=== PATIENT | female | born 1995 | race Caucasian/White ===

== ENCOUNTER 2017-07-30 19:49 | Emergency (ER) | payer OTHER ==
[~2017-07-30] VITALS: Ht 172.7 cm; Wt 97.3 kg
[2017-07-30] MEDS ORDERED: PROP60TA14 PO (20:04)
[2017-07-30] MEDS ORDERED: LISI10TA4 (20:04)
[2017-07-30] MEDS ORDERED: LEVONOR (20:04)
[2017-07-30] MEDS ORDERED: ONDANSETRON 4MG/2ML VIAL (J2405) IV ONE (21:45)
[2017-07-30] MEDS ORDERED: NS 1,000 ML IV ONE (21:45)
[2017-07-30] MEDS ORDERED: MORPHINE 4 MG/ML 1ML SYRINGE IV PRN (21:45)
[2017-07-30 22:38] LABS: BASO # 0.1 10^3/uL (0.0-0.2); BASO % 0.7 % (0.0-1.0); EOS # 0.3 10^3/uL (0.0-0.50); EOS % 2.4 % (0.0-3.0); IMMATURE GRANULOCYTE % 0.4 % (0-0); LYMPH # 2.6 10^3/uL (1.5-6.5); LYMPH % 21.5 % (24.0-44.0); MEAN CORPUSCULAR HEMOGLOBIN 28.2 pg (27.0-33.0); MEAN CORPUSCULAR HGB CONC 33.1 g/dl (32.0-36.5); MEAN CORPUSCULAR VOLUME 85.2 fl (80.0-96.0); MONO # 0.8 10^3/uL (0.0-0.8); MONO % 6.7 % (0.0-5.0); NEUTROPHILS # 8.4 10^3/uL (1.8-7.7); NEUTROPHILS % 68.3 % (36.0-66.0); PLATELET COUNT, AUTOMATED 314 10^3/uL (150-450); RED CELL DISTRIBUTION WIDTH 13.9 % (11.5-14.5); WHITE BLOOD COUNT 12.3 10^3/uL (4.0-10.0)
--- NOTE | 2017-07-30 22:40 | REPUSA ---
HISTORY: RUQ PAIN. TECHNIQUE: Right upper quadrant limited ultrasound examination . FINDINGS: Liver is of normal size with increased echogenic texture consistent with fatty liver, wit hout focal liver mass seen. No ascites is seen. Biliary tree and gallbladder are normal with no gallstones seen. Gallbladder wall thickness is galina l and common bile duct measures 5.3 mm. Limited imaging of the pancreas demonstrates no pathologic mass. Right kidney measures 12.0 x 5.8 x 4.8 cm with no pathologic mass, hydronephrosis, or calculi seen. IMPRESSION: 1. Hepatic steatosis. 2. Otherwise, negative right upper quadrant limited ultrasound examination.
[2017-07-30 23:07] LABS: ALBUMIN 3.6 GM/DL (3.2-5.2); ALBUMIN/GLOBULIN RATIO 0.92 (1.00-1.93); ALKALINE PHOSPHATASE 104 U/L (45-117); ALT/SGPT 38 U/L (12-78); ANION GAP 7 MEQ/L (8-16); AST/SGOT 20 U/L (15-37); BILIRUBIN,DIRECT < 0.1 MG/DL (0.0-0.2); BILIRUBIN,TOTAL 0.3 MG/DL (0.2-1.0); BLOOD UREA NITROGEN 6 MG/DL (7-18); CARBON DIOXIDE LEVEL 26 MEQ/L (21-32); CHLORIDE LEVEL 105 MEQ/L (98-107); CREATININE FOR GFR 0.62 MG/DL (0.55-1.02); GLUCOSE, FASTING 85 MG/DL (70-105); POTASSIUM SERUM 4.2 MEQ/L (3.5-5.1); SODIUM LEVEL 138 MEQ/L (136-145); TOTAL PROTEIN 7.5 GM/DL (6.4-8.2)
[2017-07-30] MEDS ORDERED: ISOVUE-370 76% 100ML VIAL (Q9967) As Ordered ONE (23:15)
--- NOTE | 2017-07-31 | REPUSA ---
HISTORY: RUQ PAIN.. TECHNIQUE: Axial CT imaging of abdomen and pelvis with intravenous contrast enhancement and sagittal and coronal reformatted imaging. DLP= 770.1 mGy-cm. FINDINGS: Lung bases are clear. No bony fracture or destructive bony lesion is seen in the lower thor ax, abdomen, and pelvis. Liver is enlarged with fatty infiltration. No focal liver mass is seen. Biliary tree is of normal c aliber. No calcified gallstones are seen in the gallbladder and no gallbladder wall wall mass is see n, but there is a small amount of pericholecystic fluid measuring approximately 5 mm, which was not d emonstrated on the recent gallbladder ultrasound examination performed earlier tonight.. This may re present acalculus cholecystitis and clinical correlation and follow-up is suggested as indicated. Co nsider a hepatobiliary nuclear medicine scan with gallbladder ejection fraction. The pancreas pancreas, and spleen are normal. Adrenal glands are normal. Right and left kidneys are normal with no evidence of mass lesion, obstruc tion, or nephrolithiasis seen. Ureters and urinary bladder are normal. There is no evidence of abdomi nal aortic aneurysm. No retroperitoneal mass lesion or hemorrhage is seen. No pelvic mass lesion or abnormal fluid collections are seen in the abdomen and pelvis. There is no e vidence of bowel wall mass lesion, obstruction, perforation, inflammatory reaction, or evidence of di verticulitis. No abdominal wall hernia is seen. IMPRESSION: 1. Borderline hepatomegaly and hepatic steatosis, without focal liver mass lesions seen. Follow-up with liver function tests if indicated. 2. No calcified gallstones or gallbladder wall mass is seen, but there is a small amount of perichol ecystic fluid raising question of acalculus cholecystitis. Clinical correlation and consideration of a hepatobiliary nuclear medicine scan with gallbladder ejection fraction is suggested if indicated. 3. The remainder of the CT examination of the abdomen and pelvis is normal.
[2017-07-31 00:26] VITALS: BP 158/88
== END 2017-07-31 00:29 | disposition home or self-care (01) ==
LOC: M ED 19:49
DX: K80.50 Calculus of bile duct without cholangitis or cholecystitis without obstruction (principal); Z79.899 Other long term (current) drug therapy
CPT/HCPCS: 74177; 76705; 80048; 80076; 81001; 81025; 83690; 85025; 96374; 96375; 99284; J2405; Q9967

== ENCOUNTER 2017-09-24 13:15 | Day surgery (SDC) | payer OTHER ==
[~2017-09-24] VITALS: Ht 172.7 cm; Wt 96.2 kg
[~2017-09-24 13:15] MED LIST: IRON65TA PO; LEVONOR; LEVOTAB14 PO; LISI10TA4; OMEP40CA2 PO; PROP60TA14 PO
[2017-09-24] MEDS ORDERED: NS 1,000 ML IV ONE (14:00)
[2017-09-24] MEDS ORDERED: PROPOFOL 200 MG/20 ML VIAL As Ordered ONE (14:53)
[2017-09-24] MEDS ORDERED: LIDOCAINE 2% INJ 100 MG/5 ML SDV (FOR ANES.) As Ordered ONE (14:53)
--- NOTE | 2017-09-24 15:14 | ROOR ---
Patient Name: Lilia Nava Procedure Date: 09/24/2017 3:05 PM Date of : 1995 Age: 22 Room: [facility] Gender: Female Note Status: Finalized Procedure: Upper GI endoscopy Indications: Epigastric abdominal pain Providers: Luke MARROQUIN MD Referring MD: Bryon Goodwin NP Requesting Provider: Medicines: Monitored Anesthesia Care Complications: No immediate complications. Procedure: Pre-Anesthesia Assessment: - The heart rate, respiratory rate, oxygen saturations, blood pressure, adequacy of pulmonary ventilation, and response to care were monitored throughout the procedure. The Endoscope was introduced through the mouth, and advanced to the second part of duodenum. The upper GI endoscopy was accomplished without difficulty. The patient tolerated the procedure well. Findings: The esophagus was normal. The stomach was normal. The examined duodenum was normal. Impression: - Normal esophagus. - Normal stomach. - Normal examined duodenum. - No specimens collected. Recommendation: - Use Prilosec (omeprazole) 20 mg PO daily for 3 months. - May attempt change to ranitidine in 2-3 months. - (the script was sent to your pharmacy on file) Luke Marroquin MD Luke MARROQUIN MD 09/24/2017 3:14:19 PM This report has been signed electronically. Number of Addenda: 0 Note Initiated On: 09/24/2017 3:05 PM Estimated Blood Loss: Estimated blood loss: none.
[2017-09-24 15:50] VITALS: BP 132/67
== END 2017-09-24 16:10 | disposition home or self-care (01) ==
LOC: M OPP 13:15
PROVIDERS: ATTEND Internal Medicine Gastroenterology
DX: R10.13 Epigastric pain (principal); I10 Essential (primary) hypertension; K21.9 Gastro-esophageal reflux disease without esophagitis; H54.8 Legal blindness, as defined in USA; D64.9 Anemia, unspecified; Z79.899 Other long term (current) drug therapy; Z80.3 Family history of malignant neoplasm of breast; Z80.8 Family history of malignant neoplasm of other organs or systems; Z80.0 Family history of malignant neoplasm of digestive organs

== ENCOUNTER → 2017-11-01 | Outpatient (CLI) | payer OTHER ==
[2017-11-01 19:32] LABS: BASO # 0.1 10^3/uL (0.0-0.2); BASO % 0.8 % (0.0-1.0); EOS # 0.4 10^3/uL (0.0-0.50); EOS % 4.4 % (0.0-3.0); HEMATOCRIT 43.4 % (36.0-47.0); HEMOGLOBIN 14.5 g/dl (12.0-16.0); IMMATURE GRANULOCYTE # 0.1 10^3/uL (0-0); IMMATURE GRANULOCYTE % 0.6 % (0-0); LYMPH # 2.3 10^3/uL (1.5-6.5); MEAN CORPUSCULAR HEMOGLOBIN 28.7 pg (27.0-33.0); MEAN CORPUSCULAR HGB CONC 33.4 g/dl (32.0-36.5); MEAN CORPUSCULAR VOLUME 85.8 fl (80.0-96.0); MONO # 0.7 10^3/uL (0.0-0.8); MONO % 8.2 % (0.0-5.0); NEUTROPHILS # 5.1 10^3/uL (1.8-7.7); PLATELET COUNT, AUTOMATED 366 10^3/uL (150-450); RED BLOOD COUNT 5.06 10^6/uL (4.00-5.40); RED CELL DISTRIBUTION WIDTH 13.1 % (11.5-14.5); WHITE BLOOD COUNT 8.6 10^3/uL (4.0-10.0)
[2017-11-01 20:08] LABS: ALBUMIN 3.9 GM/DL (3.2-5.2); ALBUMIN/GLOBULIN RATIO 1.11 (1.00-1.93); ALKALINE PHOSPHATASE 116 U/L (45-117); ALT/SGPT 34 U/L (12-78); ANION GAP 7 MEQ/L (8-16); AST/SGOT 15 U/L (7-37); BILIRUBIN,TOTAL 0.2 MG/DL (0.2-1.0); BLOOD UREA NITROGEN 8 MG/DL (7-18); CARBON DIOXIDE LEVEL 28 MEQ/L (21-32); CHLORIDE LEVEL 107 MEQ/L (98-107); CREATININE FOR GFR 0.47 MG/DL (0.55-1.02); GLUCOSE, FASTING 93 MG/DL (70-100); IRON (FE) 57 UG/DL (50-170); POTASSIUM SERUM 4.6 MEQ/L (3.5-5.1); SODIUM LEVEL 142 MEQ/L (136-145); TOTAL PROTEIN 7.4 GM/DL (6.4-8.2)
== END ==
LOC: M LAB 17:08
DX: E61.1 Iron deficiency (principal)
CPT/HCPCS: 83540

== ENCOUNTER 2018-05-08 22:13 | Emergency (ER) | payer OTHER ==
[2018-05-08] MEDS: IBUPROFEN 800 MG TAB PO (23:29)
== END 2018-05-08 23:35 | disposition home or self-care (01) ==
LOC: M ED 22:13
DX: I10 Essential (primary) hypertension (principal); M25.521 Pain in right elbow; G43.909 Migraine, unspecified, not intractable, without status migrainosus; Z79.899 Other long term (current) drug therapy
CPT/HCPCS: 73080

== ENCOUNTER → 2018-05-09 | Outpatient (CLI) | payer OTHER ==
[2018-05-09 16:04] LABS: BASO # 0.1 10^3/uL (0.0-0.2); BASO % 0.7 % (0.0-1.0); EOS # 0.3 10^3/uL (0.0-0.50); HEMATOCRIT 42.1 % (36.0-47.0); HEMOGLOBIN 14.1 g/dl (12.0-15.5); IMMATURE GRANULOCYTE % 0.4 % (0-3.0); LYMPH # 2.3 10^3/uL (1.5-6.5); LYMPH % 23.8 % (24.0-44.0); MEAN CORPUSCULAR HEMOGLOBIN 29.2 pg (27.0-33.0); MEAN CORPUSCULAR HGB CONC 33.5 g/dl (32.0-36.5); MEAN CORPUSCULAR VOLUME 87.2 fl (80.0-96.0); MONO # 0.7 10^3/uL (0.0-0.8); MONO % 7.3 % (0.0-5.0); NEUTROPHILS # 6.3 10^3/uL (1.8-7.7); NEUTROPHILS % 64.8 % (36.0-66.0); PLATELET COUNT, AUTOMATED 307 10^3/uL (150-450); RED BLOOD COUNT 4.83 10^6/uL (4.00-5.40); RED CELL DISTRIBUTION WIDTH 13.2 % (11.5-14.5); WHITE BLOOD COUNT 9.8 10^3/uL (4.0-10.0)
[2018-05-09 16:51] LABS: ANION GAP 8 MEQ/L (8-16); BLOOD UREA NITROGEN 8 MG/DL (7-18); CARBON DIOXIDE LEVEL 28 MEQ/L (21-32); CHLORIDE LEVEL 106 MEQ/L (98-107); GLUCOSE, FASTING 79 MG/DL (70-100); IRON (FE) 74 UG/DL (50-170); POTASSIUM SERUM 4.7 MEQ/L (3.5-5.1); SODIUM LEVEL 142 MEQ/L (136-145)
== END ==
LOC: M LAB 15:05
DX: I10 Essential (primary) hypertension (principal); E61.1 Iron deficiency
CPT/HCPCS: 83540

== ENCOUNTER → 2018-09-21 | Outpatient (REF) | payer OTHER | LOC: M LAB REF 19:07 | DX: R87.615 Unsatisfactory cytologic smear of cervix (principal) | CPT/HCPCS: 88142 ==

== ENCOUNTER → 2018-11-17 | Outpatient (CLI) | payer BC, OTHER ==
[2018-11-17 15:12] LABS: BASO # 0.1 10^3/uL (0.0-0.2); BASO % 0.6 % (0.0-1.0); EOS # 0.3 10^3/uL (0.0-0.50); EOS % 3.4 % (0.0-3.0); HEMATOCRIT 42.4 % (36.0-47.0); HEMOGLOBIN 14.1 g/dl (12.0-15.5); LYMPH # 2.2 10^3/uL (1.5-6.5); LYMPH % 26.8 % (24.0-44.0); MEAN CORPUSCULAR HGB CONC 33.3 g/dl (32.0-36.5); MEAN CORPUSCULAR VOLUME 87.1 fl (80.0-96.0); MONO # 0.5 10^3/uL (0.0-0.8); MONO % 6.6 % (0.0-5.0); NEUTROPHILS % 62.1 % (36.0-66.0); PLATELET COUNT, AUTOMATED 330 10^3/uL (150-450); RED BLOOD COUNT 4.87 10^6/uL (4.00-5.40)
[2018-11-17 15:32] LABS: ALBUMIN 3.9 GM/DL (3.2-5.2); ALT/SGPT 40 U/L (12-78); BILIRUBIN,TOTAL 0.4 MG/DL (0.2-1.0); BLOOD UREA NITROGEN 8 MG/DL (7-18); CALCIUM LEVEL 9.2 MG/DL (8.5-10.1); CARBON DIOXIDE LEVEL 26 MEQ/L (21-32); CHLORIDE LEVEL 105 MEQ/L (98-107); FREE T3 2.8 PG/ML (2.2-4.0); FREE T4 0.97 NG/DL (0.76-1.46); GLOMERULAR FILTRATION RATE > 60.0 (>60); GLUCOSE, FASTING 95 MG/DL (70-100); IRON (FE) 129 UG/DL (50-170); POTASSIUM SERUM 4.5 MEQ/L (3.5-5.1); SODIUM LEVEL 138 MEQ/L (136-145); TOTAL PROTEIN 7.2 GM/DL (6.4-8.2)
== END ==
LOC: M LAB 14:30
PROVIDERS: ATTEND Nurse Practitioner Family
DX: R00.2 Palpitations (principal); E61.1 Iron deficiency; I10 Essential (primary) hypertension

== ENCOUNTER 2019-07-31 20:52 | Emergency (ER) | payer BC, MEDICAID ==
[~2019-07-31] VITALS: Ht 172.7 cm; Wt 108.2 kg
[~2019-07-31 20:52] MED LIST changes: -OMEP40CA2 PO; +OMEP40CA97 PO
[2019-07-31] MEDS ORDERED: TRAZ-252 (21:13)
[2019-07-31] MEDS ORDERED: CELE20TA (21:13)
--- NOTE | 2019-07-31 22:30 | REPVR ---
PROCEDURE INFORMATION: Exam: CT Head Without Contrast Exam date and time: 07/31/2019 9:31 PM Clinical history: 24 years old, female; Injury or trauma; Fall; Initial encounter; Concussion / head injury; Consciousness not specified; Additional info: Fall down 10 steps TECHNIQUE: Imaging protocol: Computed tomography of the head without contrast. Radiation optimization: All CT scans at this facility use at least one of these dose optimization techniques: automated exposure control; mA and/or kV adjustment per patient size (includes targeted exams where dose is matched to clinical indication); or iterative reconstruction. COMPARISON: No relevant prior studies available. FINDINGS: Brain: Normal. No hemorrhage. Unremarkable white matter. No mass effect. Ventricles: Normal. No ventriculomegaly. Bones/joints: Unremarkable. No acute fracture. Sinuses: Visualized sinuses are unremarkable. No fluid levels. Mastoid air cells: Visualized mastoid air cells are well aerated. Soft tissues: Unremarkable. IMPRESSION: No acute intracranial abnormality. Electronically signed by: Luke Davies On 07/31/2019 22:29:58 PM
--- NOTE | 2019-07-31 22:32 | REPVR ---
PROCEDURE INFORMATION: Exam: CT Cervical Spine Without Contrast Exam date and time: 07/31/2019 9:31 PM Clinical history: 24 years old, female; Injury or trauma; Fall; Initial encounter; Blunt trauma; Additional info: Fall down 10 steps TECHNIQUE: Imaging protocol: Computed tomography images of the cervical spine without contrast. Radiation optimization: All CT scans at this facility use at least one of these dose optimization techniques: automated exposure control; mA and/or kV adjustment per patient size (includes targeted exams where dose is matched to clinical indication); or iterative reconstruction. COMPARISON: No relevant prior studies available. FINDINGS: Vertebrae: Straightening of the normal cervical lordotic curvature. Normal vertebral body heights and alignments. No fractures. Discs/Spinal canal/Neural foramina: No spinal stenosis. No neural foraminal narrowing. Soft tissues: Unremarkable. Lungs: Lung apices are normal. IMPRESSION: No acute fracture/subluxation. Electronically signed by: Luke Davies On 07/31/2019 22:31:42 PM
[2019-08-01] MEDS ORDERED: ACETAMINOPHEN 500 MG TAB PO ONE (01:00)
[2019-08-01 04:12] VITALS: BP 149/90
--- NOTE | 2019-08-01 04:18 | REP ---
Clinical: Trauma. Fall. Technique: AP, lateral, bilateral oblique, and coned-down views. Findings: Alignment and lordosis is maintained. The vertebral bodies including transverse process and spinous processes are intact and normal. There is no evidence for acute fracture / compression injury or subluxation. No evidence for spondylolysis or spondylolisthesis. No significant degenerative change is noted. Impression: Normal lumbosacral spine radiograph series. Electronically Signed by Jasiel Yeung MD 08/01/2019 04:10 A
== END 2019-08-01 04:14 | disposition home or self-care (01) ==
LOC: M ED 20:52
DX: S00.03XA Contusion of scalp, initial encounter (principal); S39.012A Strain of muscle, fascia and tendon of lower back, initial encounter; W10.8XXA Fall (on) (from) other stairs and steps, initial encounter; Y92.89 Other specified places as the place of occurrence of the external cause; Y93.89 Activity, other specified; Y99.8 Other external cause status; I10 Essential (primary) hypertension; Z87.828 Personal history of other (healed) physical injury and trauma

== ENCOUNTER → 2019-12-04 | Outpatient (REF) | payer BC, MEDICAID ==
[~2019-12-04] MED LIST changes: +CELE20TA; +TRAZ-252
[2019-12-04 12:19] LABS: HEMOGLOBIN 13.8 g/dl (12.0-15.5); MEAN CORPUSCULAR HEMOGLOBIN 28.2 pg (27.0-33.0); MEAN CORPUSCULAR HGB CONC 32.9 g/dl (32.0-36.5); MEAN CORPUSCULAR VOLUME 85.7 fl (80.0-96.0); PLATELET COUNT, AUTOMATED 321 10^3/uL (150-450); WHITE BLOOD COUNT 8.3 10^3/uL (4.0-10.0)
[2019-12-04 12:36] LABS: ALBUMIN 3.8 GM/DL (3.2-5.2); ALT/SGPT 70 U/L (12-78); BILIRUBIN,TOTAL 0.2 MG/DL (0.2-1.0); BLOOD UREA NITROGEN 10 MG/DL (7-18); CALCIUM LEVEL 9.6 MG/DL (8.5-10.1); CARBON DIOXIDE LEVEL 28 MEQ/L (21-32); CHLORIDE LEVEL 108 MEQ/L (98-107); CHOLESTEROL LEVEL 157 MG/DL (<200); CHOLESTEROL RISK RATIO 3.019 (<5); CREATININE FOR GFR 0.61 MG/DL (0.55-1.30); FREE T4 1.05 NG/DL (0.76-1.46); GLOMERULAR FILTRATION RATE > 60.0 (>60); GLUCOSE, FASTING 121 MG/DL (70-100); HDL CHOLESTEROL 52 MG/DL (>40); LDL CHOLESTEROL 58 MG/DL (<100); NON-HDL-C 105 MG/DL; POTASSIUM SERUM 4.7 MEQ/L (3.5-5.1); SODIUM LEVEL 141 MEQ/L (136-145); TOTAL 25(OH) VITAMIN D 18.3 NG/ML (30.0-100.0); TRIGLYCERIDES LEVEL 237 MG/DL (<150)
[2019-12-04 12:44] LABS: HEMOGLOBIN A1c 6.2 %
== END ==
LOC: M SFHCPLAZ 09:05
PROVIDERS: ATTEND Physician Assistant
DX: Z00.00 Encounter for general adult medical examination without abnormal findings (principal); Z86.2 Personal history of diseases of the blood and blood-forming organs and certain disorders involving the immune mechanism; Z13.29 Encounter for screening for other suspected endocrine disorder; Z13.220 Encounter for screening for lipoid disorders; Z13.1 Encounter for screening for diabetes mellitus; I11.9 Hypertensive heart disease without heart failure

== ENCOUNTER → 2020-10-20 | Outpatient (CLI) | payer SELFPAY | LOC: M LABSMTC 08:30 | PROVIDERS: ATTEND Pediatrics | DX: Z20.822 Contact with and (suspected) exposure to COVID-19 (principal) ==

== ENCOUNTER → 2020-12-20 | Outpatient (REF) | payer BC, MEDICAID ==
[~2020-12-20] MED LIST changes: +LISI10TA22; -LISI10TA4
[2020-12-20 16:05] LABS: HEMOGLOBIN A1c 7.3 %
[2020-12-20 16:24] LABS: ALBUMIN 3.9 GM/DL (3.2-5.2); ALT/SGPT 188 U/L (12-78); BILIRUBIN,TOTAL 0.4 MG/DL (0.2-1.0); BLOOD UREA NITROGEN 8 MG/DL (7-18); CALCIUM LEVEL 9.3 MG/DL (8.5-10.1); CARBON DIOXIDE LEVEL 25 MEQ/L (21-32); CHLORIDE LEVEL 104 MEQ/L (98-107); CREATININE FOR GFR 0.76 MG/DL (0.55-1.30); FREE T4 1.05 NG/DL (0.76-1.46); GLOMERULAR FILTRATION RATE > 60.0 (>60); GLUCOSE, FASTING 164 MG/DL (70-100); SODIUM LEVEL 136 MEQ/L (136-145); TOTAL PROTEIN 7.6 GM/DL (6.4-8.2)
[2020-12-20 16:34] LABS: TOTAL 25(OH) VITAMIN D 15.2 NG/ML (30.0-100.0)
== END ==
LOC: M SFHCPLAZ 12:24
PROVIDERS: ATTEND Physician Assistant
DX: I11.9 Hypertensive heart disease without heart failure (principal); R79.89 Other specified abnormal findings of blood chemistry; R73.01 Impaired fasting glucose; E55.9 Vitamin D deficiency, unspecified

== ENCOUNTER → 2021-01-16 | Outpatient (REF) | payer BC, MEDICAID ==
[2021-01-16 14:35] LABS: ALBUMIN 3.7 GM/DL (3.2-5.2); ALT/SGPT 193 U/L (12-78); BILIRUBIN,TOTAL 0.4 MG/DL (0.2-1.0); BLOOD UREA NITROGEN 9 MG/DL (7-18); CALCIUM LEVEL 9.8 MG/DL (8.5-10.1); CARBON DIOXIDE LEVEL 25 MEQ/L (21-32); CHLORIDE LEVEL 101 MEQ/L (98-107); CREATININE FOR GFR 0.65 MG/DL (0.55-1.30); GLOMERULAR FILTRATION RATE > 60.0 (>60); GLUCOSE, FASTING 263 MG/DL (70-100); POTASSIUM SERUM 4.8 MEQ/L (3.5-5.1); SODIUM LEVEL 134 MEQ/L (136-145); TOTAL PROTEIN 7.2 GM/DL (6.4-8.2)
== END ==
LOC: M SFHCPLAZ 09:21
PROVIDERS: ATTEND Physician Assistant
DX: R74.8 Abnormal levels of other serum enzymes (principal)

== ENCOUNTER → 2021-02-07 | Outpatient (CLI) | payer BC, MEDICAID ==
--- NOTE | 2021-02-07 09:28 | REP ---
INDICATION: R74.8 ELEVATED LIVER ENZYMES. COMPARISON: 07/30/2017. TECHNIQUE: Real-time sonographic evaluation of right upper quadrant performed. FINDINGS: The gallbladder demonstrates no evidence of intraluminal sludge or calculi, wall thickening or pericholecystic fluid. There is no intrahepatic or extrahepatic biliary dilatation, common bile duct measures 3 mm in maximum diameter. The liver demonstrates diffuse increased echotexture compatible with diffuse fatty infiltration. A rounded hypoechoic area adjacent to the gallbladder measures 1.9 x 1.5 x 2.1 cm. This could represent an area of spared liver parenchyma. More inferiorly in the right lobe a similar appearing area measures 1.7 x 1.7 x 1.2 cm. There is a hepatomegaly, the length of the liver is approximately 21 cm. Visualized pancreas is grossly unremarkable, not optimally seen due to overlying bowel gas. The right kidney demonstrates no hydronephrosis, with a normal size of 12.3 cm in length. No free fluid is seen. IMPRESSION: Findings consistent with diffuse fatty infiltration of the liver. Hepatomegaly. Two rounded hypoechoic areas in the right lobe of the liver as discussed above, 1 adjacent to the gallbladder and 1 more inferiorly in the right lobe. These most likely represent focal areas of spared liver parenchyma. Recommend follow-up ultrasound in 6 months. <Electronically signed by Jared Solares > 02/07/21 0924
== END ==
LOC: M WHC 08:07
PROVIDERS: ATTEND Physician Assistant
DX: R74.8 Abnormal levels of other serum enzymes (principal); R16.0 Hepatomegaly, not elsewhere classified; K76.89 Other specified diseases of liver

== ENCOUNTER 2021-03-18 18:25 | Emergency (ER) | payer BC, MEDICAID ==
[~2021-03-18] VITALS: Ht 172.7 cm; Wt 104.5 kg
[2021-03-18 18:32] VITALS: BP 167/101
[2021-03-19] MEDS ORDERED: LISI10TA15 PO (02:17)
[2021-03-19] MEDS ORDERED: METF-838 PO (02:17)
[2021-03-19] MEDS ORDERED: NOXI1TAB PO (02:17)
[2021-03-19] MEDS ORDERED: KETO10TAB PO (06:36)
== END 2021-03-18 19:35 | disposition left against medical advice (07) ==
LOC: M ED 18:25
DX: Z53.21 Procedure and treatment not carried out due to patient leaving prior to being seen by health care provider (principal)

== ENCOUNTER 2021-03-18 22:20 | Emergency (ER) | payer BC, MEDICAID ==
[~2021-03-18] VITALS: Ht 172.7 cm; Wt 104.5 kg
[2021-03-19 00:10] LABS: HCG, SERUM QUALITATIVE NEGATIVE (NEGATIVE)
[2021-03-19 00:11] LABS: ALBUMIN 4.5 GM/DL (3.2-5.2); ALT/SGPT 296 U/L (12-78); BILIRUBIN,DIRECT 0.2 MG/DL (0.0-0.2); BILIRUBIN,TOTAL 0.5 MG/DL (0.2-1.0); BLOOD UREA NITROGEN 12 MG/DL (7-18); CALCIUM LEVEL 10.2 MG/DL (8.5-10.1); CARBON DIOXIDE LEVEL 31 MEQ/L (21-32); CHLORIDE LEVEL 101 MEQ/L (98-107); CREATININE FOR GFR 0.77 MG/DL (0.55-1.30); GLOMERULAR FILTRATION RATE > 60.0 (>60); GLUCOSE, FASTING 126 MG/DL (70-100); LIPASE 204 U/L (73-393); POTASSIUM SERUM 4.7 MEQ/L (3.5-5.1); SODIUM LEVEL 138 MEQ/L (136-145); TOTAL PROTEIN 8.5 GM/DL (6.4-8.2)
[2021-03-19 00:13] LABS: BASO # 0.1 10^3/uL (0.0-0.2); BASO % 0.7 % (0.0-1.0); EOS # 0.2 10^3/uL (0.0-0.5); EOS % 1.4 % (0.0-3.0); HEMATOCRIT 46.6 % (36.0-47.0); LYMPH % 22.5 % (24.0-44.0); MEAN CORPUSCULAR HEMOGLOBIN 28.1 pg (27.0-33.0); MEAN CORPUSCULAR HGB CONC 32.2 g/dl (32.0-36.5); MEAN CORPUSCULAR VOLUME 87.4 fl (80.0-96.0); MONO # 0.9 10^3/uL (0.0-0.8); MONO % 6.8 % (2.0-8.0); NEUTROPHILS # 9.2 10^3/uL (1.5-8.5); NEUTROPHILS % 67.9 % (36.0-66.0); PLATELET COUNT, AUTOMATED 403 10^3/uL (150-450); RED BLOOD COUNT 5.33 10^6/uL (4.00-5.40); WHITE BLOOD COUNT 13.5 10^3/uL (4.0-10.0)
[2021-03-19] MEDS ORDERED: METF-838 PO (02:17)
[2021-03-19] MEDS ORDERED: NOXI1TAB PO (02:17)
[2021-03-19] MEDS ORDERED: LISI10TA15 PO (02:17)
[2021-03-19] MEDS ORDERED: ISOVUE-370 76% 100ML VIAL As Ordered ONE (03:45)
--- NOTE | 2021-03-19 04:43 | REPVR ---
PROCEDURE INFORMATION: Exam: CT Abdomen And Pelvis With Contrast Exam date and time: 03/19/2021 3:15 AM Age: 25 years old Clinical indication: Abdominal pain; Localized; Right lower quadrant (rlq); Additional info: Right lower quadrant pain, R/O appendicitis TECHNIQUE: Imaging protocol: Computed tomography of the abdomen and pelvis with contrast. Radiation optimization: All CT scans at this facility use at least one of these dose optimization techniques: automated exposure control; mA and/or kV adjustment per patient size (includes targeted exams where dose is matched to clinical indication); or iterative reconstruction. Contrast material: ISO; Contrast volume: 100 ml; Contrast route: INTRAVENOUS (IV); COMPARISON: CT ABD/PEL W/IV CONTRAST ONLY 07/30/2017 11:19 PM FINDINGS: LUNG BASES: No infiltrate or effusion. VASCULAR: Visualized cardiac size is at the upper end of normal. No abdominoaortic aneurysm, dissection, or retroperitoneal hematoma. PERITONEAL : No free air or free fluid. GI: No hiatal hernia. The stomach contains some fluid and gas. The stomach is not sufficiently distended for complete diagnostic evaluation by this exam. No appearance of a bowel obstruction. No focal mesenteric inflammation seen. Slightly prominent mesenteric and ileocolic lymph nodes are noted, up to 6.3 mm in short axis. These are nonspecific but mild mesenteric adenitis or reactive nodes secondary to mild gastroenteritis may be considerations. Perianal inflammation cannot be excluded. Portions of the colon and rectum appear slightly thick-walled, however this may be artifactual secondary to insufficient distention. No pericolonic inflammation is seen. No evidence of acute diverticulitis. The appendix does not appear inflamed. HEPATOBILIARY, PANCREAS, SPLEEN: Hepatic length is 21.9 cm. Hepatic attenuation is consistent with steatosis. There is slight heterogeneity of hepatic parenchyma. No calcified gallstones or biliary dilation. No pancreatic inflammation. Spleen not enlarged. Slight heterogeneity of the spleen, likely artifactual secondary to early timing. ADRENALS, KIDNEYS, BLADDER, RETROPERITONEAL: Adrenals within normal limits. No hydronephrosis. Symmetric renal enhancement. No perinephric stranding or fluid. No perivesical stranding. No bladder wall thickening. PELVIC: Anteverted uterus. Gas within the vagina may be iatrogenic. There may be some follicular changes within the ovaries. If there are pelvic symptoms, consider ultrasound for more detailed evaluation. MUSCULOSKELETAL: Large posterior disc displacement noted at the L5/S1 level. If there are related symptoms, consider MRI for further evaluation. IMPRESSION: The appendix does not appear inflamed. No free-air, free-fluid or focal mesenteric inflammation seen. Nonspecific gastrointestinal findings to be correlated clinically are discussed above in detail. Hepatic enlargement and steatosis. Other incidental findings discussed above. Electronically signed by: Shayan Perkins On 03/19/2021 04:42:33 AM
[2021-03-19] MEDS ORDERED: KETOROLAC 30 MG/ML 1ML VIAL IV ONE (05:35)
[2021-03-19] MEDS ORDERED: KETO10TAB PO (06:36)
[2021-03-19 06:54] VITALS: BP 132/65
--- NOTE | 2021-03-19 18:34 | ED PDOC ---
Post-Departure Follow-Up елена leija faxed formal report of ct abd/p for fu Lu Robert MD Mar 19, 2021 18:34
== END 2021-03-19 06:57 | disposition home or self-care (01) ==
LOC: M ED 22:20
DX: R10.31 Right lower quadrant pain (principal); R16.0 Hepatomegaly, not elsewhere classified; K76.0 Fatty (change of) liver, not elsewhere classified; I10 Essential (primary) hypertension; D64.9 Anemia, unspecified; G47.00 Insomnia, unspecified; H54.42A3 Blindness left eye category 3, normal vision right eye; Z79.3 Long term (current) use of hormonal contraceptives; Z79.899 Other long term (current) drug therapy
CPT/HCPCS: 74177; 80048; 80076; 81001; 83690; 84703; 85025; 87210; 87490; 87590; 96374; 99283; J1885; Q9967

== ENCOUNTER → 2021-03-25 | Outpatient (REF) | payer BC, MEDICAID ==
[~2021-03-25] MED LIST changes: +KETO10TAB PO; +LISI10TA15 PO; +METF-838 PO; +NOXI1TAB PO
[2021-03-25 14:32] LABS: APPEARANCE, URINE CLEAR (CLEAR); BACTERIA, URINE AUTO NEGATIVE (NEGATIVE); BILIRUBIN, URINE AUTO NEGATIVE (NEGATIVE); BLOOD, URINE BLOOD NEGATIVE (NEGATIVE); COLOR, URINE STRAW (YELLOW); GLUCOSE, URINE (UA) AUTO NEGATIVE (NEGATIVE); KETONE, URINE AUTO NEGATIVE (NEGATIVE); LEUKOCYTE ESTERASE, URINE AUTO NEGATIVE (NEGATIVE); NITRITE, URINE AUTO NEGATIVE (NEGATIVE); PROTEIN, URINE AUTO NEGATIVE (NEGATIVE); RBC, URINE AUTO 0 /HPF (0-3); SPECIFIC GRAVITY URINE AUTO 1.013 (1.002-1.035); SQUAMOUS EPITHELIAL CELL UR AU 0 /HPF (0-6); UROBILINOGEN, URINE AUTO 0.2 mg/dL (0.0-2.0); WBC, URINE AUTO 0 /HPF (0-3)
== END ==
LOC: M SFHCPLAZ 09:40
PROVIDERS: ATTEND Physician Assistant
DX: R10.84 Generalized abdominal pain (principal); R19.7 Diarrhea, unspecified; R31.9 Hematuria, unspecified; R79.89 Other specified abnormal findings of blood chemistry

== ENCOUNTER → 2021-03-26 | Outpatient (REF) | payer BC, MEDICAID ==
[2021-03-26 11:03] LABS: BASO # 0.1 10^3/uL (0.0-0.2); BASO % 0.7 % (0.0-1.0); EOS # 0.2 10^3/uL (0.0-0.5); EOS % 2.5 % (0.0-3.0); HEMATOCRIT 39.8 % (36.0-47.0); HEMOGLOBIN 12.9 g/dl (12.0-15.5); LYMPH # 3.1 10^3/uL (1.5-5.0); LYMPH % 32.5 % (24.0-44.0); MEAN CORPUSCULAR HEMOGLOBIN 28.7 pg (27.0-33.0); MEAN CORPUSCULAR HGB CONC 32.4 g/dl (32.0-36.5); MEAN CORPUSCULAR VOLUME 88.4 fl (80.0-96.0); MONO # 0.7 10^3/uL (0.0-0.8); MONO % 7.6 % (2.0-8.0); NEUTROPHILS # 5.4 10^3/uL (1.5-8.5); NEUTROPHILS % 56.2 % (36.0-66.0); PLATELET COUNT, AUTOMATED 331 10^3/uL (150-450); WHITE BLOOD COUNT 9.5 10^3/uL (4.0-10.0)
[2021-03-26 11:58] LABS: ALBUMIN 3.7 GM/DL (3.2-5.2); ALT/SGPT 159 U/L (12-78); BILIRUBIN,TOTAL 0.2 MG/DL (0.2-1.0); BLOOD UREA NITROGEN 5 MG/DL (7-18); CALCIUM LEVEL 9.3 MG/DL (8.5-10.1); CARBON DIOXIDE LEVEL 27 MEQ/L (21-32); CHLORIDE LEVEL 106 MEQ/L (98-107); CREATININE FOR GFR 0.61 MG/DL (0.55-1.30); GLOMERULAR FILTRATION RATE > 60.0 (>60); GLUCOSE, FASTING 147 MG/DL (70-100); HEPATITIS B SURFACE ANTIGEN NEGATIVE (NEGATIVE); LIPASE 176 U/L (73-393); POTASSIUM SERUM 4.2 MEQ/L (3.5-5.1); SODIUM LEVEL 138 MEQ/L (136-145); TOTAL PROTEIN 6.9 GM/DL (6.4-8.2)
[2021-03-26 12:20] LABS: HEPATITIS C VIRUS ABY INDEX < 0.0 INDEX (<0.8)
[2021-03-26 12:21] LABS: HEPATITIS B CORE ANTIBODY IGM NEGATIVE (NEGATIVE)
[2021-03-26 12:23] LABS: HEPATITIS A ANTIBODY IGM NEGATIVE (NEGATIVE)
== END ==
LOC: M SFHCPLAZ 08:19
PROVIDERS: ATTEND Physician Assistant
DX: R10.84 Generalized abdominal pain (principal); R19.7 Diarrhea, unspecified; R31.9 Hematuria, unspecified; R79.89 Other specified abnormal findings of blood chemistry; E11.9 Type 2 diabetes mellitus without complications

== ENCOUNTER → 2021-04-17 | Outpatient (CLI) | payer BC, MEDICAID ==
[~2021-04-17] MED LIST changes: +OMEP40CA4 PO; -OMEP40CA97 PO
[2021-04-17 16:57] LABS: BLOOD UREA NITROGEN 12 MG/DL (7-18); CALCIUM LEVEL 10.5 MG/DL (8.5-10.1); CARBON DIOXIDE LEVEL 29 MEQ/L (21-32); CHLORIDE LEVEL 100 MEQ/L (98-107); CREATININE FOR GFR 0.66 MG/DL (0.55-1.30); GLOMERULAR FILTRATION RATE > 60.0 (>60); GLUCOSE, FASTING 131 MG/DL (70-100); POTASSIUM SERUM 4.4 MEQ/L (3.5-5.1); SODIUM LEVEL 139 MEQ/L (136-145)
[2021-04-17 17:43] LABS: HEMOGLOBIN A1c 6.6 %
== END ==
LOC: M PLALAB 14:24
DX: E11.9 Type 2 diabetes mellitus without complications (principal)

== ENCOUNTER → 2021-07-14 | Outpatient (CLI) | payer BC, MEDICAID ==
[2021-07-14 14:39] LABS: ALBUMIN 3.7 GM/DL (3.2-5.2); ALT/SGPT 75 U/L (12-78); BILIRUBIN,TOTAL 0.1 MG/DL (0.2-1.0); BLOOD UREA NITROGEN 8 MG/DL (7-18); CALCIUM LEVEL 9.8 MG/DL (8.5-10.1); CARBON DIOXIDE LEVEL 28 MEQ/L (21-32); CHLORIDE LEVEL 106 MEQ/L (98-107); CREATININE FOR GFR 0.58 MG/DL (0.55-1.30); GLOMERULAR FILTRATION RATE > 60.0 (>60); GLUCOSE, FASTING 117 MG/DL (70-100); POTASSIUM SERUM 4.4 MEQ/L (3.5-5.1); SODIUM LEVEL 139 MEQ/L (136-145); TOTAL PROTEIN 7.1 GM/DL (6.4-8.2)
[2021-07-14 14:44] LABS: TOTAL 25(OH) VITAMIN D 31.8 NG/ML (30.0-100.0)
[2021-07-14 15:04] LABS: HEMOGLOBIN A1c 6.2 %
== END ==
LOC: M PLALAB 10:10
PROVIDERS: ATTEND Nurse Practitioner Adult Health
DX: E11.9 Type 2 diabetes mellitus without complications (principal); K76.0 Fatty (change of) liver, not elsewhere classified

== ENCOUNTER → 2021-08-29 | Outpatient (REF) | payer BC, MEDICAID | LOC: M LAB REF 12:21 | PROVIDERS: ATTEND Physician Assistant | DX: J02.0 Streptococcal pharyngitis (principal) ==

== ENCOUNTER → 2021-12-09 | Outpatient (CLI) | payer MEDICAID ==
[~2021-12-09] MED LIST changes: -LISI10TA15 PO; +LISI10TA24 PO
[2021-12-09 13:12] LABS: HEMATOCRIT 41.6 % (36.0-47.0); HEMOGLOBIN 13.6 g/dl (12.0-15.5); MEAN CORPUSCULAR HEMOGLOBIN 28.4 pg (27.0-33.0); MEAN CORPUSCULAR HGB CONC 32.7 g/dl (32.0-36.5); MEAN CORPUSCULAR VOLUME 86.8 fl (80.0-96.0); PLATELET COUNT, AUTOMATED 369 10^3/uL (150-450); RED BLOOD COUNT 4.79 10^6/uL (4.00-5.40); WHITE BLOOD COUNT 9.1 10^3/uL (4.0-10.0)
[2021-12-09 13:36] LABS: ALBUMIN 3.8 GM/DL (3.2-5.2); ALT/SGPT 35 U/L (12-78); BILIRUBIN,TOTAL 0.2 MG/DL (0.2-1.0); BLOOD UREA NITROGEN 10 MG/DL (7-18); CALCIUM LEVEL 9.8 MG/DL (8.5-10.1); CARBON DIOXIDE LEVEL 29 MEQ/L (21-32); CHLORIDE LEVEL 105 MEQ/L (98-107); CREATININE FOR GFR 0.64 MG/DL (0.55-1.30); FERRITIN 23 NG/ML (8-252); GLOMERULAR FILTRATION RATE > 60.0 (>60); GLUCOSE, FASTING 147 MG/DL (70-100); IRON (FE) 46 UG/DL (50-170); PERCENT SATURATION 10.5 % (13.2-45.0); POTASSIUM SERUM 4.8 MEQ/L (3.5-5.1); SODIUM LEVEL 139 MEQ/L (136-145); TOTAL IRON BINDING CAPACITY 438 UG/DL (250-450); TOTAL PROTEIN 7.4 GM/DL (6.4-8.2)
[2021-12-09 14:42] LABS: HEMOGLOBIN A1c 5.8 %
== END ==
LOC: M PLALAB 11:14
PROVIDERS: ATTEND Nurse Practitioner Adult Health
DX: E11.9 Type 2 diabetes mellitus without complications (principal); E55.9 Vitamin D deficiency, unspecified; Z86.2 Personal history of diseases of the blood and blood-forming organs and certain disorders involving the immune mechanism

== ENCOUNTER → 2022-06-23 | Outpatient (CLI) | payer MEDICAID, OTHER ==
[2022-06-23 13:42] LABS: HEMOGLOBIN 13.5 g/dl (12.0-15.5); MEAN CORPUSCULAR HEMOGLOBIN 28.1 pg (27.0-33.0); MEAN CORPUSCULAR HGB CONC 32.1 g/dl (32.0-36.5); MEAN CORPUSCULAR VOLUME 87.5 fl (80.0-96.0); PLATELET COUNT, AUTOMATED 388 10^3/uL (150-450); WHITE BLOOD COUNT 9.3 10^3/uL (4.0-10.0)
[2022-06-23 14:42] LABS: ALBUMIN 3.8 GM/DL (3.2-5.2); ALT/SGPT 33 U/L (12-78); BILIRUBIN,TOTAL 0.2 MG/DL (0.2-1.0); BLOOD UREA NITROGEN 9 MG/DL (7-18); CALCIUM LEVEL 9.6 MG/DL (8.5-10.1); CARBON DIOXIDE LEVEL 27 MEQ/L (21-32); CHLORIDE LEVEL 105 MEQ/L (98-107); CREATININE FOR GFR 0.64 MG/DL (0.55-1.30); FERRITIN 23 NG/ML (8-252); GLOMERULAR FILTRATION RATE > 60.0 (>60); GLUCOSE, FASTING 84 MG/DL (70-100); IRON (FE) 38 UG/DL (50-170); PERCENT SATURATION 8.8 % (13.2-45.0); POTASSIUM SERUM 4.9 MEQ/L (3.5-5.1); SODIUM LEVEL 138 MEQ/L (136-145); TOTAL IRON BINDING CAPACITY 432 UG/DL (250-450); TOTAL PROTEIN 7.2 GM/DL (6.4-8.2)
[2022-06-23 15:24] LABS: TOTAL 25(OH) VITAMIN D 41.5 NG/ML (30.0-100.0)
== END ==
LOC: M PLALAB 09:33
PROVIDERS: ATTEND Nurse Practitioner Adult Health
DX: E11.9 Type 2 diabetes mellitus without complications (principal); Z86.2 Personal history of diseases of the blood and blood-forming organs and certain disorders involving the immune mechanism; E55.9 Vitamin D deficiency, unspecified

== ENCOUNTER → 2022-08-26 | Outpatient (REF) | payer OTHER, MEDICAID | LOC: M SFHCPLAZ 13:10 | PROVIDERS: ATTEND Nurse Practitioner Adult Health | DX: J02.9 Acute pharyngitis, unspecified (principal) ==